=== PATIENT | female | born 2000 | race Caucasian/White ===

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

== ENCOUNTER 2022-03-12 19:26 | Outpatient (REF) | payer MEDICAID, SELFPAY | END 2022-03-12 19:27 | disposition home or self-care (01) | LOC: NCHCN 19:26 | PROVIDERS: PCP Internal Medicine; Visit Provider Physician Assistant | DX: R39.9 Unspecified symptoms and signs involving the genitourinary system (principal) | CPT/HCPCS: 87077; 87086; 87186 ==

== ENCOUNTER 2022-09-26 16:07 | Outpatient (REF) | payer MEDICAID, SELFPAY ==
[2022-09-26 18:49] LABS: HCT 38.3 % (36.0-46.0); HGB 12.3 g/dL (11.2-15.7); MCHC 32.1 % (32.0-36.0); MCV 90 fL (80-95); MPV 10.6 fL (8.0-11.0); Platelet Count 286 10^3/uL (130-400); RBC 4.24 10^6/uL (3.93-5.22); RDW 12.7 % (11.7-14.6); RDW-SD 42.2 fL; WBC 6.41 10^3/uL (4.4-10.8)
[2022-09-26 19:08] LABS: Glucose 92 mg/dL (74-106); TSH 3.64 uIU/mL (0.36-3.74)
== END 2022-09-26 16:08 | disposition home or self-care (01) ==
LOC: NCHCN 16:07
PROVIDERS: PCP Internal Medicine; Visit Provider Internal Medicine
DX: R42 Dizziness and giddiness (principal); D64.9 Anemia, unspecified; F32.89 Other specified depressive episodes
CPT/HCPCS: 82947; 85027; 84443

== ENCOUNTER 2024-03-13 16:17 | Emergency (ER) | payer MEDICAID, SELFPAY ==
[2024-03-13 16:20] VITALS: BP 138/105; PULSE 102; RESP 18; TEMP 36.8; O2SAT 98
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
[2024-03-13 17:50] VITALS: BP 116/74; PULSE 87; RESP 14; O2SAT 98
[2024-03-13] MEDS: Ibuprofen 600 MG TAB PO (17:56)
== END 2024-03-13 18:12 | disposition home or self-care (01) ==
PROVIDERS: Emergency Provider Emergency Medicine; PCP Internal Medicine
DX: S20.212A Contusion of left front wall of thorax, initial encounter (principal); V49.49XA Driver injured in collision with other motor vehicles in traffic accident, initial encounter
CPT/HCPCS: 81025; 99283; 71046; 71100